=== PATIENT | female | born 1985 | race Caucasian/White ===

== ENCOUNTER 2021-12-10 03:43 | Inpatient (IN) | payer OTHER, MEDICAID, SELFPAY ==
[2021-12-10] VITALS (50 sets, daily range): BP systolic 128–187; BP diastolic 67–102; PULSE 74–122; RESP 4–23; TEMP 36.1–36.7; O2SAT 74–100; BMI 38.9
--- NOTE | 2021-12-10 04:09 | PC.NURSE ---
pt pulled from car at entrance of ER, cyanotic and apenic pulse present, pt moved from car to [facility] with staff assist, PPV given by BVM, intrannasal narcan given 2mg x 2 while transferring pt from car on [address] to room. pt roomed into room 2 with MD OLSON and multiple staff members. NPA placed by MD in room pt RA saturation of 74% supported by continuous BVM ventilations IV x 2 established and IV narcan 2 mg given IVP pt o2 saturations improved to 100% on NRB, pt became more alert and breathing on her own 8mg zofran given IVP after GCS improved, pt lethargic however maintaining her airway, pt placed on supplemental o2 and ETCO2 monitoring. per friend/family who lokesh pt in she reports that pt had called her and stated that pt has intentionally overdosed tonight on 5'blue perc 30s
[2021-12-10] MEDS: SODIUM CHLORIDE 0.9% 1,000 ML 1000 ML IV (04:10)
[2021-12-10] MEDS: NALOXONE 1 MG/ML SYRINGE 4 MG NASAL (04:20)
[2021-12-10] MEDS: NALOXONE 0.4 MG/ML VIAL IV ×4 (04:30→06:23)
[2021-12-10] MEDS: NALOXONE 0.4 MG/ML VIAL 0.2 MG IV ×2 (04:39→04:46)
[2021-12-10] MEDS: ONDANSETRON 4 MG/2 ML INJ 8 MG IV (04:48)
[2021-12-10 04:52] LABS: Add Manual Diff / Slide Review NO; Alanine Aminotransferase 32 IU/L (<35); Albumin 3.8 g/dL (3.5-5.0); Albumin Globulin Ratio 1.3 (1.0-2.8); Alkaline Phosphatase 63 U/L (38-126); Aspartate Aminotransferase 29 IU/L (14-36); BUN Creatinine Ratio 14.1 (6-22); Basophils Absolute Auto 100 /uL (0-100); Basophils Percent Auto 1.2 % (0-2); Bilirubin Total 0.6 mg/dL (0.2-1.3); Blood Urea Nitrogen 10 mg/dL (7-17); Calcium 8.3 mg/dL (8.4-10.2); Carbon Dioxide 23 mmol/L (22-32); Chloride 107 mmol/L (98-107); Eosinophils Absolute Auto 300 /uL (0-450); Estimated Glomerular Filt Rate > 60.0 mL/min (>60); Globulin 2.9 g/dL (1.7-4.1); Glucose 208 mg/dL (70-100); HEMOLYSIS < 15 (0-50); Hematocrit 37.8 % (36-46); Hemoglobin 12.6 g/dL (12.0-16.0); Lymphocytes Absolute Auto 2000 /uL (1100-4500); Lymphocytes Percent Auto 22.6 % (25-40); Mean Corpuscular HGB Conc 33.3 % (30-36); Mean Corpuscular Hemoglobin 27.7 PG (26-34); Mean Corpuscular Volume 83.3 fL (80-100); Monocytes Absolute Auto 400 /uL (0-900); Monocytes Percent Auto 4.1 % (3-14); Neutrophils Absolute Auto 6200 /uL (1500-7000); Neutrophils Percent Auto 69.1 % (50-75); Platelet Count 360 X10^3/uL (150-400); Potassium 3.5 mmol/L (3.4-5.1); Red Blood Cell Count 4.54 X10^6/uL (4.0-5.2); Red Cell Distribution Width 14.1 % (11.6-14.8); Sodium 138 mmol/L (137-145); Total Protein 6.7 g/dL (6.3-8.2); White Blood Cell Count 8.9 X10^3/uL (4.5-11.0)
[2021-12-10 04:53] LABS: Acetaminophen < 10 ug/mL (10-30); Salicylate < 1.0 mg/dL (<20)
--- NOTE | 2021-12-10 05:04 | ED.GENADULT ---
HPI - General Adult General Chief complaint: Unresponsive Stated complaint: overdose Time Seen by Provider: 12/10/21 03:54 Source: family Mode of arrival: Family Vehicle History of Present Illness HPI narrative: 36-year-old woman with a history of depression, borderline personality disorder, repeated episodes of cutting has been having increasing difficulties with depression. She is not currently on any medications or seeing a provider. She took 5 ?perc 30s? in the attempt to overdose this evening. Shortly after taking the pills she called her girlfriend to let her know that she had done this. By the time the girlfriend arrived the patient was becoming more somnolent and the girlfriend helped her into the car and brought her to the emergency room. By the time they arrived in front of the emergency room she was apneic. She was lifted out of the front seat of the car, onto a stretcher and bag valve mask ventilation was initiated as she was emergently brought back to the exam room. She was given 4 mg of intranasal Narcan with some immediate improvement but still minimal respiratory effort with significant hypoxia. IVs were started she was given 2 mg of IV Narcan with significant improvement and shortly thereafter began to spontaneously ventilate. Oxygen saturation is were as low as 70 she was never pulseless. When she was more alert her partner was present to supply the back history of suicide attempt. It is unclear whether there were any other medications consumed. Crystal denies anything beyond the 5 fentanyl tablets. Related Data Allergies Allergy/AdvReac Type Severity Reaction Status Date / Time cephalexin Allergy Unknown Verified 12/10/21 04:48 Review of Systems Review of Systems ROS Unobtainable: Unobtainable due to medical condition Patient History Medical History Borderline personality disorder Exam Initial Vital Signs Initial Vital Signs: Vital Signs Pulse Rate 100 H 12/10/21 03:45 Respiratory Rate 13 12/10/21 03:45 General: Patient is full out of the front seat of her car, hypoxic, apneic still has pulses. HEENT: Perioral cyanosis, biting her tongue with minor amount of blood appreciated in her oropharynx, pinpoint pupils Neck: No JVD, supple Respiratory: Once she was adequately resuscitated, Lungs are clear to auscultation, no wheezing no rales no rhonchi. Full and symmetrical air movement Cardiac: Tachycardic with Regular rate and rhythm no murmurs no bruits Abdomen: Soft, obese, nontender, good bowel tones, no flank pain Skin: Areas of superficial cutting on the left forearm that do not need any laceration repair. Multiple well-healed scars up and down her right arm secondary to cutting. Neurologic: Once resuscitated she is groggy but moving all extremities Extremities: No trauma, decreased overall perfusion Psych: Initially obtunded, once awake, flat affect poor eye contact slowed speech with fluent speech pattern and no obvious hallucination Course Orders Ordered: ED Orders 12/10/21 04:30 Acetaminophen Stat COVID19 -Nasal swab/Pre-Proc Stat Complete Blood Count AUTO DIFF Stat Comprehensive Metabolic Panel Stat ETOH [Ethanol (ETOH)] Stat Salicylate Stat Thyroid Stimulating Hormone Stat 12/10/21 04:34 EKG-12 Lead Stat 12/10/21 05:17 Consult to [facility] [place] - Manager Solution Stat Naloxone HCl 2 mg/ Sodium (Chloride) 500 mls @ 62.5 mls/hr IV TITRATE RUTHIE; Protocol Last Admin: 12/10/21 06:46 Dose: 0.5 mg/hr, 125 mls/hr Documented by: Naloxone HCl (Naloxone 0.4 Mg/Ml Vial) 0.2 mg IV Q2MIN PRN PRN Reason: Opiate Reversal Last Admin: 12/10/21 04:46 Dose: 0.2 mg Documented by: Admin: 12/10/21 04:39 Dose: 0.2 mg Documented by: GEORGETTE Discontinued Medications Sodium Chloride (Normal Saline 0.9%) 1,000 mls @ 1,000 mls/hr IV BOLUS ONE Stop: 12/10/21 05:33 Last Infusion: 12/10/21 05:55 Dose: 0 mls/hr Documented by: Admin: 12/10/21 04:10 Dose: 1,000 mls/hr Documented by: GEORGETTE Naloxone HCl (Naloxone 1 Mg/Ml Syringe) 4 mg NASAL NOW ONE Stop: 12/10/21 04:42 Last Admin: 12/10/21 04:20 Dose: 4 mg Documented by: GEORGETTE Naloxone HCl (Naloxone 0.4 Mg/Ml Vial) 0.4 mg IV NOW ONE Stop: 12/10/21 04:45 Last Admin: 12/10/21 04:30 Dose: 0.4 mg Documented by: GEORGETTE Naloxone HCl (Naloxone 0.4 Mg/Ml Vial) 0.4 mg IV NOW ONE Stop: 12/10/21 05:56 Last Admin: 12/10/21 05:55 Dose: 0.4 mg Documented by: GEORGETTE Naloxone HCl (Naloxone 0.4 Mg/Ml Vial) 0.4 mg IV NOW ONE Stop: 12/10/21 06:07 Last Admin: 12/10/21 06:06 Dose: 0.4 mg Documented by: GEORGETTE Naloxone HCl (Naloxone 0.4 Mg/Ml Vial) 0.4 mg IV NOW ONE Stop: 12/10/21 06:24 Last Admin: 12/10/21 06:23 Dose: 0.4 mg Documented by: GEORGETTE Ondansetron HCl (Ondansetron 4 Mg/2 Ml Inj) 8 mg IV NOW ONE Stop: 12/10/21 04:47 Last Admin: 12/10/21 04:48 Dose: 8 mg Documented by: GEORGETTE Vital Signs Vital signs: Vital Signs - 8 hr 12/10/21 03:45 12/10/21 04:03 12/10/21 04:15 Pulse Rate 100 H 122 H 100 H Respiratory Rate 13 4 L 12 Blood Pressure Pulse Oximetry 74 L 95 12/10/21 04:21 12/10/21 04:47 12/10/21 04:56 Pulse Rate 107 H 109 H 93 H Respiratory Rate 22 23 13 Blood Pressure 187/99 H 152/95 H 155/84 H Pulse Oximetry 96 99 99 12/10/21 05:00 12/10/21 05:30 12/10/21 06:00 Pulse Rate 92 H 89 95 H Respiratory Rate 13 12 9 L Blood Pressure 161/91 H 156/92 H 167/102 H Pulse Oximetry 99 100 87 L 12/10/21 06:03 12/10/21 06:30 Pulse Rate 90 Respiratory Rate 11 L Blood Pressure 144/86 H Pulse Oximetry 96 99 Medical Decision Making Lab Data Result diagrams: 12/10/21 04:30 12/10/21 04:30 Labs: Lab Results 12/10/21 12/10/21 12/10/21 Range/Units 04:30 04:30 04:30 WBC 8.9 (4.5-11.0) X10^3/uL RBC 4.54 (4.0-5.2) X10^6/uL Hgb 12.6 (12.0-16.0) g/dL Hct 37.8 (36-46) % MCV 83.3 (80-100) fL MCH 27.7 (26-34) PG MCHC 33.3 (30-36) % RDW 14.1 (11.6-14.8) % Plt Count 360 (150-400) X10^3/uL Neut % (Auto) 69.1 (50-75) % Lymph % (Auto) 22.6 L (25-40) % [place] % (Auto) 4.1 (3-14) % Eos % (Auto) 3.0 (2-4) % Baso % (Auto) 1.2 (0-2) % Neut # (Auto) 6200 (3539-4609) /uL Lymph # (Auto) 2000 (4970-1847) /uL [place] # (Auto) 400 (0-900) /uL Eos # (Auto) 300 (0-450) /uL Baso # (Auto) 100 (0-100) /uL Sodium (137-145) mmol/L Potassium (3.4-5.1) mmol/L Chloride (98-107) mmol/L Carbon Dioxide (22-32) mmol/L BUN (7-17) mg/dL Creatinine (0.52-1.04) mg/dL Estimated GFR (>60) mL/min BUN/Creatinine Ratio (6-22) Glucose (70-100) mg/dL Calcium (8.4-10.2) mg/dL Total Bilirubin (0.2-1.3) mg/dL AST (14-36) IU/L ALT (<35) IU/L Alkaline Phosphatase (38-126) U/L Total Protein (6.3-8.2) g/dL Albumin (3.5-5.0) g/dL Globulin (1.7-4.1) g/dL Albumin/Globulin Ratio (1.0-2.8) TSH 7.46 H (0.47-4.68) uIU/mL Salicylates < 1.0 (<20) mg/dL Acetaminophen < 10 L (10-30) ug/mL Ethyl Alcohol ( - 10) mg/dL SARS-CoV-2 (PCR) (Negative) 12/10/21 12/10/21 12/10/21 Range/Units 04:30 04:30 04:30 WBC (4.5-11.0) X10^3/uL RBC (4.0-5.2) X10^6/uL Hgb (12.0-16.0) g/dL Hct (36-46) % MCV (80-100) fL MCH (26-34) PG MCHC (30-36) % RDW (11.6-14.8) % Plt Count (150-400) X10^3/uL Neut % (Auto) (50-75) % Lymph % (Auto) (25-40) % [place] % (Auto) (3-14) % Eos % (Auto) (2-4) % Baso % (Auto) (0-2) % Neut # (Auto) (9597-3005) /uL Lymph # (Auto) (1907-8755) /uL [place] # (Auto) (0-900) /uL Eos # (Auto) (0-450) /uL Baso # (Auto) (0-100) /uL Sodium 138 (137-145) mmol/L Potassium 3.5 (3.4-5.1) mmol/L Chloride 107 (98-107) mmol/L Carbon Dioxide 23 (22-32) mmol/L BUN 10 (7-17) mg/dL Creatinine 0.71 (0.52-1.04) mg/dL Estimated GFR > 60.0 (>60) mL/min BUN/Creatinine Ratio 14.1 (6-22) Glucose 208 H (70-100) mg/dL Calcium 8.3 L (8.4-10.2) mg/dL Total Bilirubin 0.6 (0.2-1.3) mg/dL AST 29 (14-36) IU/L ALT 32 (<35) IU/L Alkaline Phosphatase 63 (38-126) U/L Total Protein 6.7 (6.3-8.2) g/dL Albumin 3.8 (3.5-5.0) g/dL Globulin 2.9 (1.7-4.1) g/dL Albumin/Globulin Ratio 1.3 (1.0-2.8) TSH (0.47-4.68) uIU/mL Salicylates (<20) mg/dL Acetaminophen (10-30) ug/mL Ethyl Alcohol < 10 ( - 10) mg/dL SARS-CoV-2 (PCR) Negative (Negative) ECG Data Interpretation: Sinus tachycardia at a rate of 101 No acute ischemic changes QTc 477 MDM Narrative Medical decision making narrative: 36-year-old woman with a history of borderline personality disorder and suicide attempt this evening. Five pills of ?perc 30s?. She had a complete respiratory arrest on arrival at the front of the emergency department and was resuscitated with Narcan. Initial workup shows no significant laboratory abnormalities and no evidence of additional medications ingested. She remains somewhat somnolent and 2 additional partial doses of Narcan are given. As the fentanyl continues to wear off we will continue to monitor her oxygenation and ventilation status. Will need ASSISTANT FOOD SERVICE DIRECTOR consult and given her almost successful suicide attempt would recommend hospitalization for depression with suicidal ideation. 630am patient has had recurrent doses of Narcan and continues to have significant apnea. Narcan drip is being initiated. She will need at least 12-24 hours before she is medically cleared will arrange for hospital admission. Care is reviewed with the hospitalist service and patient will be admitted for suicide attempt with opioid overdose currently on a Narcan drip awaiting clearance of the opioid for overall medical clearance and then psychiatric evaluation for her suicide attempt. Critical Care Time Critical Care Time Critical Care Time: Yes Total Critical Care Time: 41 Attestation: Critical care time is separate from other billable procedures. There is a high probability of a significant, sudden or life-threatening deterioration that requires my full and direct attention, intervention and personal management. This critical care time includes consultation with family and other consulting doctors, review of records, and interpretation of data from labs, EKGs and imaging as well as managements of respiratory arrest secondary to narcotic overdose Discharge Plan Departure Patient Disposition: Admitted As Inpatient Clinical Impression: Drug overdose, Borderline personality disorder, Suicide attempt
[2021-12-10 05:07] LABS: COVID19 -Nasal RAPID Negative (Negative)
[2021-12-10 05:26] LABS: Ethanol (ETOH) < 10 mg/dL
[2021-12-10 05:30] LABS: Thyroid Stimulating Hormone 7.46 uIU/mL (0.47-4.68)
--- NOTE | 2021-12-10 06:02 | PC.NURSE ---
Pt is having several episodes of apnea even after narcan pushes. aware. Considering intubation
[2021-12-10] MEDS: NALOXONE 2 MG in SODIUM CHLORIDE 0.9% 500 ML 125 ML IV ×2 (06:46→11:00)
--- NOTE | 2021-12-10 06:54 | PC.NURSE ---
Fresh superficial cuts noted to pt's L forearm.
--- NOTE | 2021-12-10 07:33 | PC.NURSE ---
Pt is not responsive enough at this time to inflict self harm
--- NOTE | 2021-12-10 07:34 | PC.NURSE ---
Pt's belongings given to HOUSE MOVER HELPER that has assumed her care here in the ER
--- NOTE | 2021-12-10 07:35 | PC.NURSE ---
Pt unable to stay awake long enough to complete a true suicide screening.
--- NOTE | 2021-12-10 07:38 | PC.NURSE ---
Addendum entered by Maddie Ahn R.N. 12/10/21 18:19: 1820: Narcan drip continues at 0.3 mg/hr. Pt resting with eyes closed, continues to arouse to any stimulation, A&Ox3. Pt has denied suicidal ideation throughout shift. Addendum entered by Maddie Ahn R.N. 12/10/21 16:37: 1630: Narcan drip titrated to 0.3 mg/hr. Pt awake and pleasant, asking when she can leave the hospital. Wound Care Coordinator explained rationale for pt admission to ICU and importance of staying until MD determines discharge is safe. Pt agreeable to plan of care. Addendum entered by Maddie Ahn R.N. 12/10/21 13:03: 1300: Pt states nausea is better. Pt is alert and appropriately conversive. Narcan drip at 0.4 mg/hr, will continue titration as ordered. Addendum entered by Maddie Ahn R.N. 12/10/21 12:42: 1230: Pt c/o nausea, PRN order received. Addendum entered by Maddie Ahn R.N. 12/10/21 09:46: 0830: Pt brought to ICU room 228. Wound Care Coordinator continues 1:1 monitoring, narcan drip at 0.5mg/hr. No s/s distress noted, VSS. Pt oriented to room and unit procedures. Addendum entered by Maddie Ahn R.N. 12/10/21 07:52: 0750: Narcan drip titrated up to 0.6mg/hr due to increased somnolence Original Note: 0700: Care assumed by bond underwriter, 1:1 with pt in ED until admitted to ICU. Narcan drip infusing at 0.5 mg/hr. Pt requires frequent cueing to cough and deep breathe, arouses easily to voice. Pt's significant other at bedside and able to provide information. Pt occassionally tearful but unable to clearly verbalize why. Pt does verbalize understanding of rationale for hospitalization.
--- NOTE | 2021-12-10 08:45 | PM.HP.1 ---
History of Present Illness History of Present Illness Date Patient Seen: 12/10/21 Time Patient Seen: 08:45 Chief complaint: overdose Narrative: 36 year old female with PMH of polysubstance use, depression, borderline personality disorder, repeated episodes of cutting in the past and HTN presented after an intentional overdose with fentanyl mainly.Per ER she took 5 perc 30s. Shortly after ingestion she called her girlfriend who picked her up and brought her to the emergency room. She was apneic according to the ER reports, but showed significant improvement with repeated doses of Narcan. Oxygen saturations were as low as 70% but she was never pulseless in the ER. Patient was still drowsy at time of admission, but able to respond to questions. She states she had a number of psychosocial factors leading to her ingestion. She does not think she would do it again at this time. She does not think she would want to go to inpatient treatment at this time. Labs were unremarkable, no imaging performed. Patient was placed on narcan infusion and admitted to the ICU. EKG showed NSR with Qtc of 477. Patient History Medical History (Updated 12/10/21 @ 08:49 by Remington Marx DO) Borderline personality disorder Depression HTN (hypertension) Surgical History (Updated 12/10/21 @ 08:48 by Remington Marx DO) No pertinent past surgical history Comment: Family & Social History Family history unavailable: Yes (adopted) Social History: smokes tobacco occasional etoh use denies marijuana, uses methamphetamine, most recently this AM. Meds Home Medications and Allergies Home Medications Medication Instructions Recorded Confirmed Type No Known Home Medications 12/10/21 12/10/21 History Allergies Allergy/AdvReac Type Severity Reaction Status Date / Time cephalexin Allergy Unknown Verified 12/10/21 04:48 Review of Systems Review of Systems Narrative: All other systems reviewed with the patient and are negative unless otherwise stated. Exam Vital Signs (past 8 hours): - 12/10/21 03:45 12/10/21 04:03 12/10/21 04:15 Pulse Rate 100 H 122 H 100 H Respiratory Rate 13 4 L 12 Blood Pressure Pulse Oximetry 74 L 95 12/10/21 04:21 12/10/21 04:47 12/10/21 04:56 Pulse Rate 107 H 109 H 93 H Respiratory Rate 22 23 13 Blood Pressure 187/99 H 152/95 H 155/84 H Pulse Oximetry 96 99 99 12/10/21 05:00 12/10/21 05:30 12/10/21 06:00 Pulse Rate 92 H 89 95 H Respiratory Rate 13 12 9 L Blood Pressure 161/91 H 156/92 H 167/102 H Pulse Oximetry 99 100 87 L 12/10/21 06:03 12/10/21 06:30 12/10/21 07:00 Pulse Rate 90 98 H Respiratory Rate 11 L 11 L Blood Pressure 144/86 H 150/89 H Pulse Oximetry 96 99 98 12/10/21 07:30 12/10/21 08:00 Pulse Rate 92 H 89 Respiratory Rate 13 12 Blood Pressure 138/89 142/85 H Pulse Oximetry 99 96 Oxygen Delivery Method Room Air Oxygen Flow Rate 3 Narrative Exam Narrative: GENERAL APPEARANCE: Well developed, well nourished, in no acute distress. SKIN: Inspection of the skin reveals no rashes, ulcerations or petechiae. HEENT: Normocephalic atraumatic, extraocular muscles are intact, oropharynx is clear and mucous membranes are moist, neck is supple without adenopathy NECK: Supple and symmetric. There was no thyroid enlargement, and no tenderness, or masses were felt. CHEST: Normal AP diameter and normal contour without any kyphoscoliosis. LUNGS: Auscultation of the lungs revealed no wheezes, rhonchi, or rales. CARDIOVASCULAR: There was a regular rate and rhythm without any murmurs, gallops, rubs. Peripheral pulses were 2+ and symmetric. ABDOMEN: Soft and nontender with normal bowel sounds. No ascites was noted. MUSCULOSKELETAL: There was no tenderness or effusions noted. Muscle strength and tone were normal. EXTREMITIES: No cyanosis, clubbing or edema. NEUROLOGIC: Alert and oriented x 3. Flat affect. slightly drowsy. No focal deficits. Objective ECG Impression: sinus tach, no St or T wave abnormalities. QtC 477. Labs Result Diagrams: 12/10/21 04:30 12/10/21 04:30 Labs: Laboratory Results - last 24 hr 12/10/21 12/10/21 12/10/21 04:30 04:30 04:30 WBC 8.9 RBC 4.54 Hgb 12.6 Hct 37.8 MCV 83.3 MCH 27.7 MCHC 33.3 RDW 14.1 Plt Count 360 Neut % (Auto) 69.1 Lymph % (Auto) 22.6 L [place] % (Auto) 4.1 Eos % (Auto) 3.0 Baso % (Auto) 1.2 Neut # (Auto) 6200 Lymph # (Auto) 2000 [place] # (Auto) 400 Eos # (Auto) 300 Baso # (Auto) 100 Sodium Potassium Chloride Carbon Dioxide BUN Creatinine Estimated GFR BUN/Creatinine Ratio Glucose Calcium Total Bilirubin AST ALT Alkaline Phosphatase Total Protein Albumin Globulin Albumin/Globulin Ratio TSH 7.46 H Salicylates < 1.0 Acetaminophen < 10 L Ethyl Alcohol SARS-CoV-2 (PCR) 12/10/21 12/10/21 12/10/21 04:30 04:30 04:30 WBC RBC Hgb Hct MCV MCH MCHC RDW Plt Count Neut % (Auto) Lymph % (Auto) [place] % (Auto) Eos % (Auto) Baso % (Auto) Neut # (Auto) Lymph # (Auto) [place] # (Auto) Eos # (Auto) Baso # (Auto) Sodium 138 Potassium 3.5 Chloride 107 Carbon Dioxide 23 BUN 10 Creatinine 0.71 Estimated GFR > 60.0 BUN/Creatinine Ratio 14.1 Glucose 208 H Calcium 8.3 L Total Bilirubin 0.6 AST 29 ALT 32 Alkaline Phosphatase 63 Total Protein 6.7 Albumin 3.8 Globulin 2.9 Albumin/Globulin Ratio 1.3 TSH Salicylates Acetaminophen Ethyl Alcohol < 10 SARS-CoV-2 (PCR) Negative Assessment & Plan Assessment & Plan narrative: 1. intentional fentanyl / opiate ingestion and overdose. - continue narcan infusion, appreciate orthopedic shoe maker consultation. Hope to titrate off by tomorrow given half life of suspected ingestion. - 1:1 for suicide risk. - AUTOMOBILE SERVICE STATION ATTENDANT consultation when appropriate. - consider psych consultation or initiation of SSRI if patient agreeable, depending on disposition. Suspect she will likely discharge home once medically stable based on initial interview and current mental status after ingestion, but will depend on subsequent encounters to determine if possible involuntary or voluntary psych admission would be needed. 2. Acute respiratory failure with hypoxia, resolved - secondary to problem 1. No further hypoxia on narcan. If recurs check CXR. 3. Hyperglycemia - glucose 208 on admit labs. Will check an A1c. 4. history of HTN - continue to monitor, not on home therapy per report. Code: Full Dispo: Admitted to ICU for narcan infusion DVT: Low risk, no need for ppx at this time. I spent 32 minutes providing critical care management this patient. This excludes time spent in performing separately billed procedures. I have utilized all available immediate resources to obtain, update, or review the patient's current medications. Time Spent With Patient Critical Care time: I spent a total of [] minutes of critical care time on this patient's care today; this time is exclusive of procedural time. Quality MIPS - Admit I confirm the patient?s Advance Care Plan is present, Code status is documented, Surrogate decision maker is in patient?s record [If Yes, STOP here]: Yes
--- NOTE | 2021-12-10 09:34 | PM.CN.EICU ---
History of Present Illness Consult details Chief complaint: overdose :: This patient was seen via real time interactive two-way audiovisual telecommunication. Narrative: Patient with significant history of borderline personality disorder, polysubstance use, depression, and suicidal attempt in the past presents with intentional overdose. Per report, patent ingested about 5 percocets 30. She was brought in by her girlfriend. On presntation she was apneic and somnolent. Received 4 mg of intranasal narcan with improvement in hypoxemia and ventilation. She was given an additional 2 mg of IV narcan and started on narcan infusion. Alcohol, salicylate, and acetaminophen are negative. Admitted to the ICU for narcan infusion. [facility] Medical History (Updated 12/10/21 @ 08:49 by Remington Marx DO) Borderline personality disorder Depression HTN (hypertension) Surgical History (Updated 12/10/21 @ 08:48 by Remington Marx DO) No pertinent past surgical history Social History household members: significant other Smoking Status: Current every day smoker alcohol intake: current Current Medications Current Medications Medications: Visit Medications (administered) Generic Name Dose Route Start Last Admin Trade Name Freq PRN Reason Stop Dose Admin Naloxone HCl 2 mg/ Sodium 500 mls @ 62.5 mls/hr 12/10/21 06:45 12/10/21 06:46 Chloride IV 0.5 mg/hr TITRATE RUTHIE 125 mls/hr Administration Protocol 0.25 MG/HR Naloxone HCl 0.2 mg 12/10/21 04:34 12/10/21 04:46 Naloxone 0.4 Mg/Ml Vial IV 0.2 mg Q2MIN PRN Administration Opiate Reversal Exam Vital Signs (past 8 hours): - 12/10/21 03:45 12/10/21 04:03 12/10/21 04:15 Temperature Pulse Rate 100 H 122 H 100 H Respiratory Rate 13 4 L 12 Blood Pressure Pulse Oximetry 74 L 95 12/10/21 04:21 12/10/21 04:47 12/10/21 04:56 Temperature Pulse Rate 107 H 109 H 93 H Respiratory Rate 22 23 13 Blood Pressure 187/99 H 152/95 H 155/84 H Pulse Oximetry 96 99 99 12/10/21 05:00 12/10/21 05:30 12/10/21 06:00 Temperature Pulse Rate 92 H 89 95 H Respiratory Rate 13 12 9 L Blood Pressure 161/91 H 156/92 H 167/102 H Pulse Oximetry 99 100 87 L 12/10/21 06:03 12/10/21 06:30 12/10/21 07:00 Temperature Pulse Rate 90 98 H Respiratory Rate 11 L 11 L Blood Pressure 144/86 H 150/89 H Pulse Oximetry 96 99 98 12/10/21 07:30 12/10/21 08:00 12/10/21 08:30 Temperature 97.9 F Pulse Rate 92 H 89 104 H Respiratory Rate 13 12 16 Blood Pressure 138/89 142/85 H 151/85 H Pulse Oximetry 99 96 100 12/10/21 09:00 Temperature Pulse Rate 86 Respiratory Rate 12 Blood Pressure Pulse Oximetry 100 Oxygen Delivery Method Nasal Cannula Oxygen Flow Rate 2 Objective Labs Result Diagrams: 12/10/21 04:30 12/10/21 04:30 Labs: Laboratory Results - last 24 hr 12/10/21 12/10/21 12/10/21 04:30 04:30 04:30 WBC 8.9 RBC 4.54 Hgb 12.6 Hct 37.8 MCV 83.3 MCH 27.7 MCHC 33.3 RDW 14.1 Plt Count 360 Neut % (Auto) 69.1 Lymph % (Auto) 22.6 L [place] % (Auto) 4.1 Eos % (Auto) 3.0 Baso % (Auto) 1.2 Neut # (Auto) 6200 Lymph # (Auto) 2000 [place] # (Auto) 400 Eos # (Auto) 300 Baso # (Auto) 100 Sodium Potassium Chloride Carbon Dioxide BUN Creatinine Estimated GFR BUN/Creatinine Ratio Glucose Calcium Total Bilirubin AST ALT Alkaline Phosphatase Total Protein Albumin Globulin Albumin/Globulin Ratio TSH 7.46 H Salicylates < 1.0 Acetaminophen < 10 L Ethyl Alcohol SARS-CoV-2 (PCR) 12/10/21 12/10/21 12/10/21 04:30 04:30 04:30 WBC RBC Hgb Hct MCV MCH MCHC RDW Plt Count Neut % (Auto) Lymph % (Auto) [place] % (Auto) Eos % (Auto) Baso % (Auto) Neut # (Auto) Lymph # (Auto) [place] # (Auto) Eos # (Auto) Baso # (Auto) Sodium 138 Potassium 3.5 Chloride 107 Carbon Dioxide 23 BUN 10 Creatinine 0.71 Estimated GFR > 60.0 BUN/Creatinine Ratio 14.1 Glucose 208 H Calcium 8.3 L Total Bilirubin 0.6 AST 29 ALT 32 Alkaline Phosphatase 63 Total Protein 6.7 Albumin 3.8 Globulin 2.9 Albumin/Globulin Ratio 1.3 TSH Salicylates Acetaminophen Ethyl Alcohol < 10 SARS-CoV-2 (PCR) Negative Assessment & Plan Assessment & Plan narrative: NEURO: # Acute encephalopathy -- Secondary to intentional percocet overdose -- Improved after narcan infusion -- Avoid sedatives -- EArly mobility -- Neuro check every 4 hours # Percocet overdose -- 4T1/2 life is approximately 24 hours -- Cont narcan infusion to titrate for RASS goal -1 to 0 -- Needs 1:1 sitter -- Needs psych consultation RESP: -- Monitor closely for respiratory depression -- Narcan infusion as above CVS: -- Monitor on telemetry as patient is at risk for prolong QTc -- High lytes goal ENDO: -- Goal BS < 180 D/w hospitalist and RN. Time Spent With Patient Critical Care time: I spent a total of [] minutes of critical care time on this patient's care today; this time is exclusive of procedural time.
[2021-12-10] MEDS: ONDANSETRON 4 MG ODT SL (12:41)
[2021-12-10] MEDS: NALOXONE 2 MG in SODIUM CHLORIDE 0.9% 500 ML 75 ML IV (16:18)
--- NOTE | 2021-12-10 20:16 | PM.ICURNDS ---
- :: This patient was discussed with bedside staff via real time interactive two-way audiovisual telecommunication. Note: 36 yo w opiate OD needing sitter and narcan drip, thus in ICU. She is doing well and will likely be weaned off Narcan drip by AM. D/w bedside nurse, no other active issues. Her BG was elevated, and an A1C has been ordered with morning labs. Her TSH is elevated, consider checking a FT4 and if that is normal, her TSH should be re-checked as an outpatient.
--- NOTE | 2021-12-10 20:34 | PC.NURSE ---
Addendum entered by Mary Kay Evangelista R.N. 12/11/21 05:29: 0520- Patient asking when the would be in to see her. Patient advised that the DrSandip would be in at 0730 and then if he ok's her status then a mental health evaluation will be ordered. She began swearing and was very agitated. Patient advised she was on a mental health hold due to her attempted suicide. She stated I should have done a better job. Patient advised that this kind of acting out would only serve to keep her in the hospital longer as she would not be cleared to leave. Patient then turned to her side and cried. Patient continues to have a 1;1 sitter for safety. Will monitor closely. Original Note: 1999- Patient resting in room. 1:1 sitter for safety. Patient requesting to have Nasal cannula removed. Patient advised that until the Narcan gtt is off, the Nasal cannula will need to be worn. Patient also advised to not use foul language when making requests. Patient apologized. Vss will monitor.
[2021-12-11] VITALS (15 sets, daily range): BP systolic 120–151; BP diastolic 69–90; PULSE 77–112; RESP 9–17; TEMP 36.2; O2SAT 93–100
[2021-12-11 05:33] LABS: Add Manual Diff / Slide Review NO; Basophils Absolute Auto 100 /uL (0-100); Eosinophils Absolute Auto 300 /uL (0-450); Eosinophils Percent Auto 2.7 % (2-4); Hematocrit 38.7 % (36-46); Hemoglobin 12.8 g/dL (12.0-16.0); Lymphocytes Absolute Auto 2600 /uL (1100-4500); Lymphocytes Percent Auto 27.8 % (25-40); Mean Corpuscular HGB Conc 33.1 % (30-36); Mean Corpuscular Hemoglobin 27.6 PG (26-34); Mean Corpuscular Volume 83.5 fL (80-100); Monocytes Absolute Auto 500 /uL (0-900); Monocytes Percent Auto 5.8 % (3-14); Neutrophils Absolute Auto 5900 /uL (1500-7000); Neutrophils Percent Auto 62.7 % (50-75); Platelet Count 367 X10^3/uL (150-400); Red Blood Cell Count 4.63 X10^6/uL (4.0-5.2); Red Cell Distribution Width 13.9 % (11.6-14.8); White Blood Cell Count 9.4 X10^3/uL (4.5-11.0)
[2021-12-11 05:50] LABS: Hemoglobin A1C% w Est Avg Glu 5.5 % (4.0-6.0)
[2021-12-11 05:52] LABS: BUN Creatinine Ratio 14.1 (6-22); Blood Urea Nitrogen 10 mg/dL (7-17); Calcium 8.5 mg/dL (8.4-10.2); Carbon Dioxide 26 mmol/L (22-32); Chloride 105 mmol/L (98-107); Estimated Glomerular Filt Rate > 60.0 mL/min (>60); Glucose 97 mg/dL (70-100); HEMOLYSIS < 15 (0-50); Potassium 3.8 mmol/L (3.4-5.1); Sodium 136 mmol/L (137-145)
--- NOTE | 2021-12-11 08:36 | PC.NURSE ---
Addendum entered by Gina Gudino R.N. 12/11/21 10:45: pt refusing ativan at this time, offered 1mg as ordered, pt decline. Will continue to monitor. Addendum entered by Gina Gudino R.N. 12/11/21 08:54: both PIV removed per Dr Marx, pt tolerated well. Original Note: Day shift note A/o pt with very flat affect, only makes eye contact when asked to, Narcan gtt off see emar for documentation. Pt is asking when the doctor will be in, Dr Marx at bedside, ok to remove PIV x2, pt to be discharged home after SW talks to her. No further needs at this time, continues to have a 1:1 sitter outside door for safety. Will contine to treat and monitor as ordered.
--- NOTE | 2021-12-11 09:46 | PM.PN.EICU ---
Subjective Subjective :: This patient was seen via real time interactive two-way audiovisual telecommunication. Current Medications Current Medications Medications: Home Medications No Known Home Medications 12/10/21 [History Confirmed 12/10/21] Visit Medications (administered) Generic Name Dose Route Start Last Admin Trade Name Freq PRN Reason Stop Dose Admin Enoxaparin Sodium 40 mg 12/11/21 09:00 12/11/21 08:40 Enoxaparin 40 Mg/0.4 Ml Syringe SUBCUT Not Given DAILY RUTHIE Naloxone HCl 2 mg/ Sodium 500 mls @ 62.5 mls/hr 12/10/21 06:45 12/10/21 23:30 Chloride IV 0 mg/hr TITRATE RUTHIE 0 mls/hr Titration Protocol 0.25 MG/HR Ondansetron HCl 4 mg 12/10/21 12:29 12/10/21 12:41 Ondansetron 4 Mg Odt SL 4 mg Q4HR PRN Administration Nausea Objective Labs Result Diagrams: 12/11/21 05:12 12/11/21 05:12 Labs: Laboratory Results - last 24 hr 12/10/21 12/11/21 12/11/21 08:40 05:12 05:12 WBC 9.4 RBC 4.63 Hgb 12.8 Hct 38.7 MCV 83.5 MCH 27.6 MCHC 33.1 RDW 13.9 Plt Count 367 Neut % (Auto) 62.7 Lymph % (Auto) 27.8 [place] % (Auto) 5.8 Eos % (Auto) 2.7 Baso % (Auto) 1.0 Neut # (Auto) 5900 Lymph # (Auto) 2600 [place] # (Auto) 500 Eos # (Auto) 300 Baso # (Auto) 100 Sodium 136 L Potassium 3.8 Chloride 105 Carbon Dioxide 26 BUN 10 Creatinine 0.71 Estimated GFR > 60.0 BUN/Creatinine Ratio 14.1 Glucose 97 D Hemoglobin A1c Calcium 8.5 Nasal Screen MRSA (PCR) Negative for mrsa 12/11/21 05:12 WBC RBC Hgb Hct MCV MCH MCHC RDW Plt Count Neut % (Auto) Lymph % (Auto) [place] % (Auto) Eos % (Auto) Baso % (Auto) Neut # (Auto) Lymph # (Auto) [place] # (Auto) Eos # (Auto) Baso # (Auto) Sodium Potassium Chloride Carbon Dioxide BUN Creatinine Estimated GFR BUN/Creatinine Ratio Glucose Hemoglobin A1c 5.5 Calcium Nasal Screen MRSA (PCR) Exam Vital Signs (past 8 hours): - 12/11/21 02:00 12/11/21 02:30 12/11/21 03:00 Temperature Pulse Rate 112 H 82 83 Respiratory Rate 17 10 L 10 L Blood Pressure 145/75 H 132/77 Pulse Oximetry 94 97 98 12/11/21 03:02 12/11/21 03:30 12/11/21 04:00 Temperature 97.1 F L Pulse Rate 95 H 94 H 89 Respiratory Rate 13 11 L 14 Blood Pressure 132/77 137/87 Pulse Oximetry 95 97 98 12/11/21 04:30 12/11/21 05:00 12/11/21 07:56 Temperature Pulse Rate 92 H 92 H 91 H Respiratory Rate 10 L 11 L 13 Blood Pressure 151/86 H 141/86 H Pulse Oximetry 96 93 93 12/11/21 09:00 Temperature Pulse Rate 77 Respiratory Rate 15 Blood Pressure Pulse Oximetry 100 Oxygen Delivery Method Nasal Cannula Oxygen Flow Rate 2 Quality TeleICU VTE Deep Vein Thrombosis/Pulmonary Embolism Present on Admission: No Assessment & Plan Time Spent With Patient Critical Care time: I spent a total of [] minutes of critical care time on this patient's care today; this time is exclusive of procedural time.
--- NOTE | 2021-12-11 10:50 | PM.DS.1 ---
History of Present Illness History of Present Illness Date Patient Seen: 12/11/21 Time Patient Seen: 10:50 Chief complaint: overdose Narrative: 36 year old female with PMH of polysubstance use, depression, borderline personality disorder, repeated episodes of cutting in the past and HTN presented after an intentional overdose with fentanyl mainly.Per ER she took 5 perc 30s. Shortly after ingestion she called her girlfriend who picked her up and brought her to the emergency room. She was apneic according to the ER reports, but showed significant improvement with repeated doses of Narcan. Oxygen saturations were as low as 70% but she was never pulseless in the ER. Patient was still drowsy at time of admission, but able to respond to questions. She states she had a number of psychosocial factors leading to her ingestion. She does not think she would do it again at this time. She does not think she would want to go to inpatient treatment at this time. Labs were unremarkable, no imaging performed. Patient was placed on narcan infusion and admitted to the ICU. EKG showed NSR with Qtc of 477. Discharge Providers Provider Date of admission: 12/10/21 07:03 Discharge Date: 12/11/21 Consults: 12/10/21 05:17 [place] [facility] [place] [facility] [employer]ating Supervisor Stat Comment: 12/10/21 09:02 Consult to Tele-buttonholer Routine Comment: Consulting Provider: Ila [employer] Reason for consultation: Evp Managing Director services Discharge provider: Remington Marx DO Summary Hospital Course Discharge Diagnosis: 1. intentional fentanyl / opiate ingestion and overdose. 2. Acute respiratory failure with hypoxia, resolved 3. Hyperglycemia, resolved 4. history of HTN Hospital Course: 36 year old female with PMH of polysubstance use, depression, borderline personality disorder, repeated episodes of cutting in the past and HTN presented after an intentional overdose with fentanyl mainly.Per ER she took 5 perc 30s. Shortly after ingestion she called her girlfriend who picked her up and brought her to the emergency room.? She was apneic according to the ER reports, but showed significant improvement with repeated doses of Narcan.? Oxygen saturations were as low as 70% but she was never pulseless in the ER. She was continued on a Narcan infusion and improved more quickly than expected. The following morning she had been off of her Narcan infusion for multiple hours, was awake and alert, and was no longer endorsing thoughts of suicidal ideation. She was evaluated by social Work and provided with outpatient resources. Time Spent with Patient Time spent: Less than 30 minutes Exam Vital Signs (past 8 hours): - 12/11/21 03:00 12/11/21 03:02 12/11/21 03:30 Temperature Pulse Rate 83 95 H 94 H Respiratory Rate 10 L 13 11 L Blood Pressure 132/77 132/77 Pulse Oximetry 98 95 97 12/11/21 04:00 12/11/21 04:30 12/11/21 05:00 Temperature 97.1 F L Pulse Rate 89 92 H 92 H Respiratory Rate 14 10 L 11 L Blood Pressure 137/87 151/86 H Pulse Oximetry 98 96 93 12/11/21 07:56 12/11/21 09:00 Temperature Pulse Rate 91 H 77 Respiratory Rate 13 15 Blood Pressure 141/86 H Pulse Oximetry 93 100 Oxygen Delivery Method Nasal Cannula Oxygen Flow Rate 2 Narrative Exam Narrative: GENERAL APPEARANCE: Well developed, well nourished, in no acute distress. SKIN: Inspection of the skin reveals no rashes, ulcerations or petechiae. HEENT:? Normocephalic atraumatic, extraocular muscles are intact, oropharynx is clear and mucous membranes are moist, neck is supple without adenopathy NECK: Supple and symmetric. There was no thyroid enlargement, and no tenderness, or masses were felt. CHEST: Normal AP diameter and normal contour without any kyphoscoliosis. LUNGS: Auscultation of the lungs revealed no wheezes, rhonchi, or rales. CARDIOVASCULAR: There was a regular rate and rhythm without any murmurs, gallops, rubs. Peripheral pulses were 2+ and symmetric. ABDOMEN: Soft and nontender with normal bowel sounds. No ascites was noted. MUSCULOSKELETAL: There was no tenderness or effusions noted. Muscle strength and tone were normal. EXTREMITIES: No cyanosis, clubbing or edema. NEUROLOGIC: Alert and oriented x 3. No focal deficits. Objective Labs Result Diagrams: 12/11/21 05:12 12/11/21 05:12 Labs: Laboratory Results - last 24 hr 12/11/21 12/11/21 12/11/21 05:12 05:12 05:12 WBC 9.4 RBC 4.63 Hgb 12.8 Hct 38.7 MCV 83.5 MCH 27.6 MCHC 33.1 RDW 13.9 Plt Count 367 Neut % (Auto) 62.7 Lymph % (Auto) 27.8 [place] % (Auto) 5.8 Eos % (Auto) 2.7 Baso % (Auto) 1.0 Neut # (Auto) 5900 Lymph # (Auto) 2600 [place] # (Auto) 500 Eos # (Auto) 300 Baso # (Auto) 100 Sodium 136 L Potassium 3.8 Chloride 105 Carbon Dioxide 26 BUN 10 Creatinine 0.71 Estimated GFR > 60.0 BUN/Creatinine Ratio 14.1 Glucose 97 D Hemoglobin A1c 5.5 Calcium 8.5 [facility] Medical History (Updated 12/10/21 @ 08:49 by Remington Marx DO) Borderline personality disorder Depression HTN (hypertension) Surgical History (Updated 12/10/21 @ 08:48 by Remington Marx DO) No pertinent past surgical history Social History household members: significant other Smoking Status: Current every day smoker alcohol intake: current Discharge Plan Discharge Plan Patient Disposition: Home Provider Discharge Comment: You were admitted to the hospital after an intentional overdose. You improved with time and medications. If you desire, outside resources provided by social work. Discharge orders & Medications Prescriptions: No Action No Known Home Medications 0RF Diet/Activity/Treatments Diet: Diet as Tolerated Activity: As tolerated Visit Report/Discharge Packet Instructions: Naloxone for Opiate Overdose - [facility] Stand Alone Forms: Naloxone Standing Order [facility] Quality VTE Deep Vein Thrombosis/Pulmonary Embolism Present on Admission: No
--- NOTE | 2021-12-11 15:49 | CM.SWNOTE ---
OIL LEASE BUYER - Pin Ball Machine Mechanic Assessment OIL LEASE BUYER - Pin Ball Machine Mechanic Assessment Start: 12/11/21 14:49 Freq: Status: Discharge Protocol: Document 12/11/21 14:49 NIRU (Rec: 12/11/21 15:49 NIRU [id number]) OIL LEASE BUYER/Pin Ball Machine Mechanic Assessment Mental Health Screening Include Onset, Duration, Intensity Presenting Problem HPI narrative: 36-year-old woman with a history of depression, borderline personality disorder, repeated episodes of cutting has been having increasing difficulties with depression. She is not currently on any medications or seeing a provider. She took 5 ?perc 30s? in the attempt to overdose this evening. Shortly after taking the pills she called her girlfriend to let her know that she had done this. Precipitating Event(s) Increased symptoms of Borderline Personality Disorder per patient; extreme paranoia and feelings of self destruction, inability to communicate feelings well, and increased agitation Patient Strengths 2 year relationship with girlfriend Elizabeth. Employment through [employer] near [place], [employer] fully benefited position. Employee health/EAP has done the leg work for patient per patient/ gf and have found available Psychiatrist for patient's f/u ...patient needs to call to schedule this appt Current Behavioral Health Provider(s) None Include Facility, Provider, Ph. # Psych. Hx Mental Health and Chemical MIS chk reveals distant hx of Dependency DCR outreach 2011, determination unknown. 2007- 2010 Crisis appointment and MIS checks per [facility]'s historical record. Family Hx of Behavioral Abuse Did not assess Psychiatric Hospitalizations (date(s)/ Did not assess location) Psychosocial information & Support Lives alone in [place], Systems often stays with girlfriend Elizabeth, employed through [employer] School/Work Employed sales department clerk Substance Abuse Screening Include Onset, Duration, Intensity Presenting Problem Did not assess. Patient does admit to intentional OD on Fentanyl that was not prescribed Legal Concerns Legal Matters - Outstanding Issues None reported Mental Status Orientation (Person/Place/Time) Oriented Stated Mood I'm gonna fucking throw shit at someone if i don't get outta this fuckin place Affect (Congruent with Mood?) Yes Thought Content - Specify/Describe None Obsessions, Delusions, Hallucinations Thought Processes (Ojdzqio-Mgogkvdx-Bgia Disorganized Wwfsslnt-Elqfpgul-Gtfboglmaq- Frekpnyngmhaeo-Qvqgigd-Wpqslgahjneh- Thought Blocking) Speech (Hppfxi-Ydez-Stdrsdc-Rapid-Soft- Loud, from slow to rapid Loud-Pressured) quickly Motor (Yvmyzy-Ggdyutcjn-Jbry-Other) Normal Insight (Tkbd-Yhii-Kvtg/Limited) Good Judgement (Eloy-Khvt-Ghtn/Limited) Fair Impulse Control (Adequate-Impaired) Impaired Memory (Abnxybwko-Twkgml-Zpmbtw, Intact Impaired-Intact) Concentration (Intact-Impaired) Intact Attention (Intact-Impaired) Impaired Behavior (Appropriate-Inappropriate) Inappropriate, patient extremely agitated at beginning of this meeting, calmed significantly after monitors were unplugged, less beeping, calm voices, allowing patient time to discuss outpatient plan w/this OIL LEASE BUYER and gf Elizabeth Additional Comment see intervention Risk Assessment Suicidal Ideation (Plan) No Homicidal Ideation (Plan) No Comment Patient admits to recent and persistent SI, no HI. Denies SI since waking up at the hospital and denies SI to Dr Marx and to this OIL LEASE BUYER today. Patient admits her SA was impulsive and is extremely remorseful today Intervention Intervention Patient wanting to leave AMA upon this OIL LEASE BUYER's arrival- patient extremely agitated, has refused nicotine patch and states she wants a cigarette. Patient cursing profusely but will shut down verbally when this OIL LEASE BUYER asks questions about why she is here ? or about events/thoughts leading up to this SA? RN Gina kindly removes all monitoring devices, quiets beeping monitors, and patient immediately calmed. This OIL LEASE BUYER and gf Elizabeth partnered in talking through patient's recent behaviors and SA, gf Elizabeth is tearful and reviews driving patient at 100mph while jumping on her ( pt) chest to keep her breathing on the way to the ER. Once patient calmed we reviewed the following and patient was agreeable to all: -DC home today w/gf Elizabeth to stay w/patient, support patient and assist in securing an outpatient psychiatric appt -Psychiatric team has been identified by employer's EAP, patient/gf state we just need to get home and review their emails gf agrees to assist, patient agrees to securing help -F/u call at approx 1400 from [facility] [place], patient's cell: P# [phone] -Provided packet of contact info for inpatient [facility]- occuring treatment facilities, many also offer intensive outpatient programs Plan RA Plan DC home w/supportive gf, patient eager to leave the hospital to have a cigarette, states tearfully that I will never do that again to her (gf ) and is able to review action steps to minimizing risk for addtl SA
== END 2021-12-11 11:00 | disposition home or self-care (01) | DRG 812 ==
LOC: ED 06:35 → AC 07:04 → ICU 08:55
PROVIDERS: Internal Medicine; Admitting Provider Nurse Practitioner Family; Emergency Provider Emergency Medicine; Referring Provider Emergency Medicine; Visit Provider Nurse Practitioner Family
DX: T40.412A Poisoning by fentanyl or fentanyl analogs, intentional self-harm, initial encounter (principal); Y92.009 Unspecified place in unspecified non-institutional (private) residence as the place of occurrence of the external cause; F60.3 Borderline personality disorder; J96.01 Acute respiratory failure with hypoxia; F17.200 Nicotine dependence, unspecified, uncomplicated; Z20.822 Contact with and (suspected) exposure to COVID-19
CPT/HCPCS: 36415; 80048; 80053; 80320; 80329; 83036; 84443; 85025; 87635; 87797; 92950; 93005; 96361; 96365; 96366; 96375; 96376; 99285; 99291; 99292; C9803; G0480; J2310; J2405